=== PATIENT | female | born 1970 | race Caucasian/White ===

== ENCOUNTER 2019-04-06 18:56 | Emergency (ER) | payer MEDICAID ==
[2019-04-06] MEDS: DIPHTH/TET/ACEL PERTUSS (ADULT) 0.5 ML VIAL IM* (20:42)
[2019-04-06] MEDS: LIDOCAINE 1% (MDV) 20 ML INJ SC (21:16)
[2019-04-06] MEDS: ACETAMINOPHEN 325 MG TAB PO (21:16)
[2019-04-06] MEDS: MUPIROCIN 2% 22 GM OINT TOP (22:14)
== END 2019-04-06 22:50 | disposition home or self-care (01) ==
LOC: FTE 18:56
DX: S51.812A Laceration without foreign body of left forearm, initial encounter (principal); W18.39XA Other fall on same level, initial encounter; Y92.69 Other specified industrial and construction area as the place of occurrence of the external cause; Z23 Encounter for immunization
CPT/HCPCS: 12004; 90471; 90715; 99283-25

== ENCOUNTER 2019-04-08 11:24 | Emergency (ER) | payer SELFPAY, MEDICAID | END 2019-04-08 12:52 | disposition left against medical advice (07) | LOC: E/R 11:24 | DX: Z53.21 Procedure and treatment not carried out due to patient leaving prior to being seen by health care provider (principal) ==

== ENCOUNTER 2019-04-18 17:57 | Emergency (ER) | payer MEDICAID | END 2019-04-19 11:54 | disposition home or self-care (01) | LOC: E/R 04-19 11:54 | DX: Z48.02 Encounter for removal of sutures (principal) | CPT/HCPCS: 99281; Z7502 ==